=== PATIENT | male | born 1940 | race Caucasian/White ===

== ENCOUNTER 2020-05-08 01:58 | Emergency (ER) | payer MEDICARE ==
[2020-05-08 02:19] VITALS: PULSE 69
[2020-05-08] MEDS ORDERED: Lidocaine 1% 20 ML MDV INJECT ONE (02:19)
--- NOTE | 2020-05-08 02:23 | EDM.PDOC ---
ED HPI GENERAL MEDICAL PROBLEM - General Chief Complaint: Laceration Stated Complaint: FALL Time Seen by Provider: 05/08/20 02:15 Source of Information: Reports: Patient History Limitations: Reports: No Limitations - History of Present Illness Onset: Today Improves with: Reports: None Worsens with: Reports: None Associated Symptoms: Reports: No Other Symptoms Bilateral Headache Pain Score (Numeric/FACES): 7 - Related Data Allergies Allergy/AdvReac Type Severity Reaction Status Date / Time No Known Allergies Allergy Verified 04/15/15 11:32 Home Meds: Home Meds Aspirin [Adult Low Dose Aspirin EC] 81 mg PO DAILY 04/15/15 [History] Biotin 10 mg PO DAILY 04/15/15 [History] Calcium Citrate/Vitamin D3 [Calcium Citrate + Caplet] 1 tab PO DAILY 04/15/15 [History] Chrm/Vineg/Bit-Orang Peel/Gr T [Apple Cider Vinegar Plus TB] 1 tab PO DAILY 04/15/15 [History] Fish Oil/Borage/Flax/Om3,6,9 1 [[place] 3-6-9 Complex Softgel] 1 tab PO DAILY 04/15/15 [History] Glucosamine/D3/Boswellia Judi [Glucosamine Complex Tablet] 1 tab PO BID 04/15/15 [History] Lactobacillus Combination No.4 [Probiotic] 1 tab PO DAILY 04/15/15 [History] Loratadine [Claritin] 10 mg PO DAILY 04/15/15 [History] Multivitamin with Minerals [Multiple Vitamin] 1 tab PO DAILY 04/15/15 [History] Omeprazole [Prilosec] 20 mg PO DAILY 04/15/15 [History] Saw [place] Fruit [Saw [place]] 1 tab PO DAILY 04/15/15 [History] atenoloL [Atenolol] 50 mg PO DAILY 04/15/15 [History] Past Medical History - Past Health History Medical/Surgical History: Denies Medical/Surgical History Other Neuro History: tremor since age 23, restless legs - Infectious Disease History Infectious Disease History: Reports: Chicken Pox, Measles, Mumps - Past Surgical History Other HEENT Surgeries/Procedures: adnoidectomy Social & Family History - Tobacco Use Smoking Status *Q: Never Smoker ED ROS GENERAL - Review of Systems Review Of Systems: See Below Constitutional: Reports: No Symptoms HEENT: Reports: No Symptoms Respiratory: Reports: No Symptoms Cardiovascular: Reports: No Symptoms ED EXAM, SKIN/RASH Exam: See Below Exam Limited By: No Limitations General Appearance: Alert, WD/WN Ears: Normal External Exam Nose: Normal Inspection Throat/Mouth: Normal Inspection Head: Facial Tenderness (Tender On palpation of the left cheondoism area but no bony deformity noted), Other (4 cm crescentic flap-like laceration left cheondoism. Not bleeding. Definitely into subcutaneous tissue.) Neck: Normal Inspection, Supple, Non-Tender Respiratory/Chest: No Respiratory Distress Cardiovascular: Normal Peripheral Pulses ED SKIN PROCEDURES - Laceration/Wound Repair Face Distal NVT: Neuro & Vascular Intact Anesthetic Type: Local Local Anesthesia - Lidocaine (Xylocaine): 1% Plain Local Anesthetic Volume: 4cc Skin Prep: Chlorhexidine (Hibiciens) Exploration/Debridement/Repair: Wound Explored, In a Bloodless Field, No Foreign Material Found Closed with: Patti Lac/Wound length In cm: 5 # of Sutures: 9 Sterile Dressing Applied: Nurse Complications: No Course - Vital Signs Last Recorded V/S: Last Vital Signs Temp 35.7 C L 05/08/20 02:02 Pulse 69 05/08/20 02:02 Resp 16 05/08/20 02:02 BP 176/70 H 05/08/20 02:47 Pulse Ox 97 05/08/20 02:02 - Orders/Labs/Meds Meds: Medications Discontinued Medications Generic Name Dose Route Start Last Admin Trade Name Mahadq PRN Reason Stop Dose Admin Lidocaine HCl 20 ml 05/08/20 02:19 05/08/20 02:35 Xylocaine 1% INJECT 05/08/20 02:20 20 ml ONETIME ONE Administration Departure - Departure Time of Disposition: 02:45 Disposition: Home, Self-Care 01 Condition: Good Clinical Impression: Laceration of forehead Qualifiers: Encounter type: initial encounter Qualified Code(s): S01.81XA - Laceration without foreign body of other part of head, initial encounter - Discharge Information Instructions: Laceration Care, Adult, Sutures, Patti, or Adhesive Wound Closure, [id number] Referrals: PCP,None [Primary Care Provider] - Forms: ED Department Discharge Additional Instructions: Deep wound clean, dry, and covered. If washing the face just gently pat dry with a towel. Patti out in 1 week Sepsis Event Note (ED) - Evaluation Sepsis Screening Result: No Definite Risk - Focused Exam Vital Signs: Vital Signs Temp Pulse Resp BP Pulse Ox 05/08/20 02:47 176/70 H 05/08/20 02:02 35.7 C L 69 16 196/75 H 97
[2020-05-08 02:48] VITALS: BP 176/70
== END 2020-05-08 02:54 | disposition home or self-care (01) ==
LOC: JP.ED 01:58
DX: S01.81XA Laceration without foreign body of other part of head, initial encounter (principal); Z79.82 Long term (current) use of aspirin; Z79.899 Other long term (current) drug therapy; X58.XXXA Exposure to other specified factors, initial encounter
CPT/HCPCS: 12013; 99282; J2001

== ENCOUNTER 2021-11-12 17:37 | Emergency (ER) | payer MEDICARE ==
[2021-11-12] MEDS ORDERED: Sodium Chloride 0.9% 10 ML Syringe FLUSH PRN (17:40)
[2021-11-12] MEDS ORDERED: Diltiazem 25 MG/5 ML SDV IVPUSH ONE (18:15)
[2021-11-12] MEDS: Sodium Chloride 0.9% 1,000 ML IV SCH (18:29)
[2021-11-12] MEDS ORDERED: Propofol 200 MG/20 ML SDV ONE (18:39)
[2021-11-12] MEDS ORDERED: Diltiazem 100 MG in Sodium Chloride 0.9% 100 ML IV SCH (19:00)
[2021-11-12] MEDS ORDERED: Amiodarone 150 MG/3 ML SDV IVPUSH ONE (22:04)
[2021-11-13] MEDS ORDERED: Ondansetron 4 MG/2 ML SDV IVPUSH ONE (01:08)
[2021-11-13] MEDS: Sodium Chloride 0.9% 1,000 ML IV SCH (05:34)
[2021-11-13 06:27] VITALS: BP 134/58; PULSE 67
== END 2021-11-13 06:54 | disposition home or self-care (01) ==
LOC: JP.ED 17:37
DX: I48.0 Paroxysmal atrial fibrillation (principal); Z79.899 Other long term (current) drug therapy; Z79.82 Long term (current) use of aspirin
CPT/HCPCS: 36415; 80053; 83735; 84443; 84484; 85025; 92960; 93005; 96365; 96366; 96375; 96376; 99285-25; J0282; J2405; J2704; J3490; J7030